=== PATIENT | female | born 1990 | race Caucasian/White ===

== ENCOUNTER 2017-01-29 02:54 | Emergency (ER) | payer OTHER ==
[~2017-01-29] VITALS: Ht 170.2 cm; Wt 59.1 kg
[2017-01-29 02:58] VITALS: BP 154/97; PULSE 101; RESP 20; O2SAT 99
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
[2017-01-29] MEDS ORDERED: LORazepam 2 mg Tablet PO ONE (03:10)
[2017-01-29] MEDS ORDERED: METH5TAB3 PO (08:42)
[2017-01-29 12:16] VITALS: BP 121/76; PULSE 86; RESP 18; O2SAT 98
--- NOTE | 2017-01-31 08:32 | NUR ---
GARY ED Note D&A: Pt was detained by [facility] yesterday afternoon (01/30/2017) for danger to self. [facility] was not able to find an open bed last night. Pt still requiring inpt hospitalization today. RIGGING UP MAN called [facility] who may have a bed available for today pending a possible discharge. Per community center coordinator, Psychiatrist will try to see pt today. GARY also Called the following units in case [facility] does not have a bed available for today: [facility]-May have a bed this afternoon. [facility]-No beds this morning, may have a bed this afternoon pending discharge. [facility]-No beds at this time. [facility]- No beds at this time. [facility]- Message left with Intake assembler musical instruments, GARY awaiting callback from Unit RN. P: Pt detained. Anticipated transfer to inpt psychiatric tx pending bed availability and acceptance. GARY Soler Addendum: 01/31/17 at 0900 by COURTNEY SANTOS ADDENDUM: Please disregard the above note. Mistakenly documented on pt's incorrect ED visit on the same calender day. GARY Soler
== END 2017-01-29 12:50 | disposition home or self-care (01) ==
LOC: EDBD → SED 02:54
DX: F32.9 Major depressive disorder, single episode, unspecified (principal); R45.851 Suicidal ideations; F17.200 Nicotine dependence, unspecified, uncomplicated; Z88.8 Allergy status to other drugs, medicaments and biological substances

== ENCOUNTER 2017-01-29 16:31 | Inpatient (IN) | payer MEDICAID, OTHER ==
[~2017-01-29] VITALS: Ht 170.2 cm; Wt 59.0 kg
[~2017-01-29 16:31] MED LIST: METH5TAB3 PO
[2017-01-29 16:45] VITALS: BP 144/88; PULSE 122; RESP 23; O2SAT 97
[2017-01-29] MEDS: Haloperidol 5 mg/mL Inj IM PRN (17:02)
[2017-01-29 17:10] VITALS: BP 147/83; PULSE 120
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
[2017-01-29 19:59] VITALS: BP 114/74; PULSE 118; RESP 20; O2SAT 98
[2017-01-30 01:47] VITALS: BP 110/80; PULSE 95; RESP 18; O2SAT 98
[2017-01-30 06:42] VITALS: BP 103/69; PULSE 94; RESP 20; O2SAT 97
[2017-01-30] MEDS ORDERED: LORazepam 2 mg Tablet PO ONE (08:40)
[2017-01-30] MEDS ORDERED: Methadone 10 mg/mL 30 mL Oral Concentration PO ONE (09:45)
[2017-01-30 10:08] VITALS: BP 103/69; PULSE 106; RESP 16; O2SAT 99
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
[2017-01-30 13:37] VITALS: BP 120/75; PULSE 87; RESP 20; O2SAT 98
[2017-01-30 18:13] VITALS: BP 123/83; PULSE 82; O2SAT 98
[2017-01-30] MEDS ORDERED: OLANZapine Zydis ODT 5 mg Tablet PO SCH (19:05)
[2017-01-31 06:59] VITALS: BP 108/77; PULSE 94; RESP 18; O2SAT 98
[2017-01-31 07:00] LABS: BASOPHILS % (AUTO) 0.4 % (0-3); EOSINOPHILS % (AUTO) 5.3 % (0-5); MONOCYTES % (AUTO) 7.9 % (4-12); Mean Corpuscular Hemoglobin 29.9 pg (27.0-35.0); Mean Corpuscular Volume 89.7 fL (81-100); NEUTROPHILS % (AUTO) 38.5 % (40-74); Platelet Count 169 bil/L (150-400)
[2017-01-31] MEDS: Haloperidol 5 mg/mL Inj IM PRN (07:43)
--- NOTE | 2017-01-31 09:00 | NUR ---
SCIENCE LIAISON ED Note D&A: Pt was detained by [facility] yesterday afternoon (01/30/2017) for danger to self. [facility] was not able to find an open bed last night. Pt still requiring inpt hospitalization today. SCIENCE LIAISON called [facility] who may have a bed available for today pending a possible discharge. Per coating and embossing unit operator, Psychiatrist will try to see pt today. SCIENCE LIAISON also Called the following units in case [facility] does not have a bed available for today: [facility]-May have a bed this afternoon. [facility]-No beds this morning, may have a bed this afternoon pending discharge. [facility]-No beds at this time. [facility]- No beds at this time. [facility]- Message left with Intake medical receptionist medical assistant, GARY awaiting callback from Unit RN. P: Pt detained. Anticipated transfer to inpt psychiatric tx pending bed availability and acceptance. GARY Soler
[2017-01-31] MEDS ORDERED: Benzocaine-Menthol Lozenge 2/Pkg PO PRN ×2 (12:45→12:50)
[2017-01-31] MEDS ORDERED: Alum-Mag Hydrox-Simeth 30 mL Suspension PO PRN (12:50)
[2017-01-31] MEDS ORDERED: Magnesium Hydroxide 10 mL Oral Concentration PO PRN (12:50)
[2017-01-31] MEDS: cloNIDine 0.1 mg Tablet PO SCH ×2 (13:11→19:33)
[2017-01-31] MEDS: LORazepam 1 mg Tablet PO PRN ×2 (13:12→19:33)
[2017-01-31] MEDS: hydrOXYzine Pamoate 25 mg Capsule PO PRN (13:12)
[2017-01-31] MEDS ORDERED: methadone PO (13:59)
[2017-01-31] MEDS: Methadone 10 mg/mL 30 mL Oral Concentration PO SCH (14:04)
--- NOTE | 2017-01-31 14:07 | NUR ---
New Admit Pt arrived on the floor @ 1205 from [facility] ED. She was accompanied by security and hospital staff. She was A/O x 4. Ambulatory with steady gait. She was detained on a 72 hour hold after making suicidal threats to both her boyfriend and the police. Refer to detainment paperwork and affidavits. She reports using multiple drugs; methamphetamines, cocaine, marijuana and heroine. Her boyfriend wrote in his affidavit that she has been in recovery for 2 years and relapsed this past week trying to manage manic type symptoms. She reports attending the Methadone Clinic at [facility] in [place]. JENNY signed and information faxed from [facility]. First dose of Methadone 100mg oral solution ordered by the attending physician and received this afternoon. She reports having multiple suicide attempts both in her youth and as an adult, she became agitated and restless when asked the methods attempted. She stated"I don't want to be here. I just want to go home." Upon admit she rated SI 1/10, Depression, 5/10, anxiety 10/10. Denies HI. Denies AVH. She received Vistaril 50mg po prn, Ativan 1mg po prn and Seroquel 50mg po prn upon admit for extreme anxiety & agitation. She finished the meal brought up from the ED. Oriented to her room and is currently resting.
--- NOTE | 2017-01-31 16:25 | NUR ---
Observations [id number] Pt arrived on unit @ 1205. She appeared disoriented, tired, and somber. Pt was able to complete paperwork with this advertising copywriter, stating multiple times "only because I have to." Pt mentioned that she has struggled with drug use for the past two weeks- "I don't need that crap in my life." She was also concerned about her baby blanket that she brought with her on the unit. After paperwork was completed, pt went to bed and slept the majority of the afternoon. She was observed every 15 minutes of shift as directed.
--- NOTE | 2017-01-31 22:09 | NUR ---
NURSING NOTE [id number] Mood: "I don't even care anymore... I should just . My boyfriend broke up with me. What's the point?" Affect: dependent, tearful Behavior: pt. resting in bed for several hours at start of shift. Her boyfriend Mil visited. While they were in the piano room the pt. began clinging to him, pleading w/him, and crying. Staff intervened and asked her to stop, which she did. Pt's boyfriend was also tearful. Pt. expressed that her bf was breaking up w/her and the bf then began explaining his reasoning (her addictions) which further upset the pt. This headline writer concluded the visit at that time and both parties were agreeable and said goodbye to each other w/out issue. Pt. took her HS medications at that time, as well as PRN Ativan 1 mg PRN and PRN Seroquel 50 mg. Pt. is med compliant. Thought processes: pt. endorses passive SI in that she expressed "there's no point anymore to my life if I can't be with Mil." Pt. denied any plan or intent at this time. Pt. agreed to tell staff if this changes. Pt. responded well to staff reassurance and maintained behavioral control for the rest of the evening.
--- NOTE | 2017-02-01 06:00 | NUR ---
Nursing Note Rn Security 11pm-7am Patient was in bed at start of shift. She was noted to be in bed asleep at 2245 and through the rest of the night. Pt monitored q 15 minutes for safety, location and accountability.
[2017-02-01] MEDS: cloNIDine 0.1 mg Tablet PO SCH ×2 (09:07→20:56)
[2017-02-01] MEDS: Methadone 10 mg/mL 30 mL Oral Concentration PO SCH (09:14)
--- NOTE | 2017-02-01 14:34 | NUR ---
nursing: Pt began the shift quiet and calm, med compliant. Came out for breakfast and ate about 75% She had her hearing today and has 14 more days. However after a conversation with her filler spreader stormed to her room saying 'I'm Homeless! I'm going to kill myself! She was just told that her gm got a restraining order and that was no longer an option. Pt has been sleeping since shortly after this outburst
--- NOTE | 2017-02-01 15:15 | HP ---
[address] [address] HISTORY AND PHYSICAL PATIENT: DANAE DE LEÓN : 1990 MR#: [id number] ADMIT: 01/31/2017 JOB ID: [id number] IDENTIFICATION: The patient is a 26-year-old white female with a history of polysubstance abuse currently attending a methadone clinic. She is a very poor historian and was brought to the ED for evaluation of suicidal ideation. REASON FOR ADMISSION: Suicidal ideation. Client was running into traffic in an attempt to kill herself. She had wished that she had overdosed on meds and was highly agitated when brought to the emergency department. HISTORY OF PRESENT ILLNESS: Client presents today for evaluation and treatment of suicidal ideation. I met with the client for a brief one-to-one and reviewed course and records kept by [facility]. Client's main issue is polysubstance abuse. Co-occurring issues are interpersonal relationship conflicts. The condition has been developing over an unclear amount of time. The client is a poor historian and refuses to answer any of my questions. Per the ED, she was complaining of suicidal ideation because she broke up with her boyfriend. Two days prior to admission, she did heroin, cocaine and methadone. Her urine tox was also positive for THC. At the time of my evaluation, she was extremely emotionally labile with poor coping skills and a marked impairment in judgment and insight. She refused to respond to questions about psychiatric or physical review of systems. She refused to talk about past medical history or psychosocial history. PAST MEDICATIONS: Methadone clinic 115 mg per day. Client denies being on any psych meds. ALLERGIES: SUMATRIPTAN. ILLNESSES: None. FAMILY MEDICAL HISTORY: Client refuses. PAST PSYCHIATRIC HISTORY: Client states she has been diagnosis with bipolar mood disorder, and currently is at a methadone clinic. PSYCHOSOCIAL: Client refused to answer any of my questions. PHYSICAL EXAMINATION: Vital signs: 108/77, pulse 94, respirations 18, afebrile. Physical examination reviewed from ED and essentially normal. MENTAL STATUS: Client disheveled. Poor eye contact. Behavior lethargic, withdrawn. Attitude aloof and detached. Speech monotone or mute. Mood will not respond. Affect flat, blunted with high intensity. Thought process: Client unable or unwilling to relate a coherent history. She did not appear to be responding to internal stimuli. She appeared fatigued. Thought content: Client mute. Per ED she had suicidal ideation to overdose and to get hit by traffic. She did run into traffic but refused to talk with me. She refused to answer orientation or memory questions. Insight and judgment appeared very poor. Impulse control highly contained yet rigid. Having a difficult time handling impulses of fear or anger. Reality testing is unable to assess. Competency to handle current stressors is currently being overwhelmed. IMPRESSION: The patient is a 26-year-old white female with a rather severe polysubstance abuse issue as including heroin, cocaine, methamphetamine, marijuana and alcohol. She also has a rather severe personality disorder per the chart and appears to be exhibiting some of that behavior here with refusing to participate in the unit process or the court process. I went to court today and testified. Her 72 hour involuntary treatment hold hearing was postponed until Monday. For unclear reasons, client is still being prescribed methadone at the methadone clinic besides what sounds like ongoing substance abuse. We will need to further get information from the clinic and from the patient when she agrees to start talking. DIAGNOSIS: AXIS I 1. Depression unspecified with suicidal ideation. 2. Rule out substance induced mood disorder. 3. Polysubstance abuse heroin, cocaine, methamphetamine and THC. AXIS II Unknown, reported borderline personality disorder. AXIS III None. AXIS IV Unknown. AXIS V Current global assessment of functioning equal to 30. PLAN: Recommend client be admitted to our unit to be provided with a high degree of safety through the structure and active adult engagement she receives from our mental health techs, mental health professionals, psychiatric nurses and the psychiatric physicians. We will have her participate in one-to-one unit and group activities working on improving coping skills, as well as help coming up with a safety plan should suicidal ideation recur as an outpatient. At this time I am continuing the methadone at 100 mg daily and clonidine 0.1 b.i.d. for potential symptoms of withdrawal. No other psychiatric medications recommended until she can detox for a couple days and start to develop a more therapeutic alliance with myself or another physician. Court will be scheduled for Monday.
--- NOTE | 2017-02-01 18:32 | NUR ---
Observations 0700 - 1900 Pt affect and mood flat, isolative, guarded and withdrawn. Pt was in her room and in bed most of the shift. Pt was pleasant, polite and cooperative when approached but giving short responses. Pt maintained behavior throughout the shift. Pt attended breakfast in D.R. and ate 75%. Pt came out of her room for court but returned to her bed as soon as it was over. Pt was offered lunch and dinner but she refused to come out of her room. Pt was observed every 15 minutes through the shift as ordered.
--- NOTE | 2017-02-01 21:49 | NUR ---
NURSING NOTE [id number] Mood: "whatever, I'm fucking done" Affect: irritable, depressed, guarded Behavior: isolating to room for majority of the shift. Pt. came out late to eat her dinner and took a shower. Stated: "this is the last shower I'll ever take since I'm fucking homeless now. Thanks, grandma!" She was med compliant and had 5 mg of Ambien PRN @ HS for insomnia. Thought processes: pt. expressing negative thinking and hopelessness this evening. She learned today she can no longer live w/her grandmother and has been irritable in conversation w/this advertising copy writer. Expresses passive SI w/no plan or intent.
--- NOTE | 2017-02-02 04:08 | NUR ---
nursing, nights, 11-7 s/o- has appeared to sleep after 2129 during q 15 minute assessments. a- no apparent distress. p- monitor behavior/emotional state, quality, times and amount of sleep, use and effect of medication. gurwinder
[2017-02-02] MEDS: hydrOXYzine Pamoate 25 mg Capsule PO PRN ×2 (06:43→13:22)
[2017-02-02] MEDS: cloNIDine 0.1 mg Tablet PO SCH ×2 (08:30→21:22)
[2017-02-02] MEDS: Methadone 10 mg/mL 30 mL Oral Concentration PO SCH (08:31)
[2017-02-02 10:35] VITALS: BP 109/72; PULSE 71; RESP 18
--- NOTE | 2017-02-02 13:57 | PCM.PNPSY ---
Subjective Date of Service Feb 02, 2017 Subjective I spent 30 minutes both reviewing treatment plan with our clinical team, interviewing the patient and providing supportive/educational psychotherapy. I spent more than 50% of the time counseling the patient. I reviewed the treatment plan with the patient and discussed options available including the potential risks, benefits and side effects. Bettye reports no difficulty with her thought organization or mood stability. She does not want to take medications other than her methadone and is demanding discharge. She recently learned that her grandmother placed a restraining order on her and she is now homeless. She did not want to problem solve about engaging treatment or participating in the program over the weekend as we establish outpatient care and a housing plan. She simply is demanding discharge. Staff reports that she has been isolating and participating poorly in one-to-one unit and group activities. She slept 9 hours and denies manic or psychotic symptoms review. She does report extreme dysphoria. She is currently denying suicidal ideation. She denies medication side effects. Current Medications Current Medications Hydroxyzine Pamoate 50 mg Q4H PRN PO Last administered on 02/02/17t 13:22; Admin Dose 50 MG; Start 02/01/17 at 14:40 Mental Status Exam Vital Signs Vital Signs Date Time Temp Pulse Resp B/P Pulse Ox O2 Delivery O2 Flow Rate FiO2 02/02/17 10:35 36.6 71 18 109/72 Appearance: Disheveled Attitude: Uncooperative Behavior: Tearful Affect: Flat, Labile Mood: Dysthymic, Depressed Thought Process/Associations: Goal Directed Speech Production: Loud Speech Rate: Normal Speech Articulation: Normal Thought Content: Negativistic Danger to Self/Suicidal Ideati: Passive, Plan Danger to Others: None Consciousness: Alert Orientation: Person, Place, Date, Situation Memory: Grossly Intact Estimate Intellectual Function: Below Average Basis for IQ estimate: Awareness current events, Word use/vocabulary, Educational history, Employment history Attention/Concentration & Cogn: Impaired Cognitive Testing Method: Abstract Reasoning during interview, Proverb interpretation, Serial computations Insight: Limited Judgement: Limited Result Diagram: 01/31/17 0650 01/31/17 0650 Mental Health Plan The patient is a 26-year-old white female with a rather severe polysubstance abuse issue as including heroin, cocaine, methamphetamine, marijuana and alcohol. She also has a rather severe personality disorder per the chart and appears to be exhibiting some of that behavior here with refusing to participate in the unit process or the court process. I went to court on Monday and testified. Her 72 hour involuntary treatment hold hearing was postponed until Monday. She is still being prescribed methadone as she struggles with ongoing substance abuse. At this time she is refusing psychiatric medications or further offers of treatment. She denies suicidal ideation today but I am concerned that she is still at risk. [place] DIAGNOSIS: AXIS I 1. Depression unspecified with suicidal ideation. 2. Rule out substance induced mood disorder. 3. Polysubstance abuse heroin, cocaine, methamphetamine and THC. AXIS II Unknown, reported borderline personality disorder. AXIS III None. AXIS IV Unknown. AXIS V Current global assessment of functioning equal to 35 Medications Medications to address General Physical Health Treatments Patient is being provided with a high degree of safety through our unit structure and active adult engagement provided by our mental health professionals, mental health technicians, psychiatric nurses and myself. We are focusing on developing improved coping skills and identifying stressors that may have led to current episode. We will attempt to: * Integrate into therapeutic groups, milieu and individual therapy. * Maintain in a closely monitored and structured unit * Provide low-stimulation environment * Obtain collateral data to assist in treatment planning * Assess degree of lability of affect and impulse control * Complete safety plan * Decrease frequency of relapse and need for re-hospitalization * Denies thoughts of harm to self and/or others * Establish a consistent sleep pattern * Medication effective in stabilization of mood and/or thought process * Reduce the risk of imminent harm to self and/or others by providing a safe environment * Tolerates medication without side effects Patient will be on the following psychiatric medications: Methadone 100 mg daily Labs: Education: Educate patient about recreational drug use as an etiology Educate about metabolic etiologies related to obesity Patient's legal status Patient is on a 72 hour involuntary treatment hold. Patient will be given the opportunity to talk to her class b truck driver and the slot tag inserter Monday Anticipated number of hospital days to achieve above goals: 7 Disposition: [facility] care Baldemar Comer MD Feb 02, 2017 13:57
--- NOTE | 2017-02-02 14:43 | NUR ---
NURSE NOTE DAY Mood: "I'm angry and frustrated." Endorses depression and anxiety (did not rate). Affect: Irritable. Thought Process/Content: "I don't know why my grandmother has an f*&$%ing restraint order for me." Linear, linked. Denies SI, HI. Denies AH, VH. Behavior: Pt up for meals and isolated in room much of shift.
--- NOTE | 2017-02-02 16:04 | NUR ---
Observations 0700 to 1900. Pt did not attend community meeting. Pt attended recreational activities. Pt ate a snack. Pt is mildly social with peers but spends some of free time reading and resting in room. Pt appears ambivalent towards staff. Pt maintained behavioral control and showed no signs of abnormal behavior. Respirations were observed while asleep. Breakfast: 100%. Lunch: 100%. Staff completed 15 min close observations as ordered. Addendum: 02/02/17 at 1821 by [facility] Pt became agitated when fire alarm went off for five minutes around 1700. Pt began slamming doors, yelling and cursing. Pt was unable to deescalate with staff intervention. Pt remained in room until dinner several minutes later in which she was able to maintain behavioral control.
[2017-02-02] MEDS: LORazepam 1 mg Tablet PO PRN (17:05)
--- NOTE | 2017-02-02 18:05 | NUR ---
Optical Engineering Technician/Counselor: S: "I want my blanket but people think I will hang myself so they won't let me get it!" O: Patient slept 8.5 hours last night per staff. Patient denies S/I and H/I. She did not rate auditory and visual hallucinations, depression or anxiety. A: Patient is uncooperative, unkept, labile, tearful, flat affect, dysthymic, depressed, limited insight, limited judgment. P: Follow the care plan, coordinate with out-patient providers, monitor behavior.
--- NOTE | 2017-02-02 23:07 | NUR ---
NURSE NOTE EVENING SHIFT [id number]: Pt was in the milieu at the start of shift, but then stayed in her room for majority of the rest of the shift. The fire alarm activated around 1700, at which time the Pt came out of her room angrily yelling and swearing about the noise. Staff offered her ear plugs, but she did not want any. Pt went back to her room until dinnertime, then went back to her room to rest in bed. PT was compliant and pleasant when taking HS meds. Pt monitored q15 min. for safety, location and accountability.
--- NOTE | 2017-02-03 04:08 | NUR ---
nursing, nights, 11-7 s/o- has appeared to sleep after 2100 during q 15 minute assessments. a- no apparent distress. p- monitor behavior/emotional state, quality, times and amount of sleep, use and effect of medication. gurwinder
[2017-02-03] MEDS: cloNIDine 0.1 mg Tablet PO SCH (07:37)
[2017-02-03] MEDS: Methadone 10 mg/mL 30 mL Oral Concentration PO SCH (07:46)
--- NOTE | 2017-02-03 12:59 | PCM.PNPSY ---
Subjective Date of Service Feb 03, 2017 Subjective I spent 30 minutes both reviewing treatment plan with our clinical team, interviewing the patient and providing supportive/educational psychotherapy. I spent more than 50% of the time counseling the patient. I reviewed the treatment plan with the patient and discussed options available including the potential risks, benefits and side effects. Bettye reports no difficulty with her thought organization or mood stability but is concerned about a cyst on her vulva. She does not want to take medications other than her methadone and is demanding discharge (she is on a 70 2R involuntary treatment hold that has been postponed until next Monday). She recently learned that her grandmother placed a restraining order on her and she is now homeless. Today she was willing to problem solve about engaging treatment and participating in the program over the weekend as we establish outpatient care and a housing plan. She is hoping to be discharged early next week and I believe this would be appropriate if she can develop a reasonable safety plan. Staff reports that she has been isolating and participating poorly in one-to-one unit and group activities. She slept 9 hours and denies manic or psychotic symptoms review. She does report extreme dysphoria. She is currently denying suicidal ideation. She denies medication side effects. Current Medications Current Medications Hydroxyzine Pamoate 50 mg Q4H PRN PO Last administered on 02/02/17 13:22; Admin Dose 50 MG; Start 02/01/17 at 14:40 Ibuprofen 600 mg Q6H PRN PO Last administered on 02/03/17 07:37; Admin Dose 600 MG; Start 02/01/17 at 14:40 Lorazepam 1 mg Q4H PRN PO Last administered on 02/02/17 17:05; Admin Dose 1 MG ; Start 02/01/17 at 14:40 Mental Status Exam Appearance: Disheveled Attitude: Uncooperative Behavior: Tearful Affect: Flat, Labile Mood: Dysthymic, Depressed Thought Process/Associations: Goal Directed Speech Production: Loud Speech Rate: Normal Speech Articulation: Normal Thought Content: Negativistic Danger to Self/Suicidal Ideati: Passive, Plan Danger to Others: None Consciousness: Alert Orientation: Person, Place, Date, Situation Memory: Grossly Intact Estimate Intellectual Function: Below Average Basis for IQ estimate: Awareness current events, Word use/vocabulary, Educational history, Employment history Attention/Concentration & Cogn: Impaired Cognitive Testing Method: Abstract Reasoning during interview, Proverb interpretation, Serial computations Insight: Limited Judgement: Limited Result Diagram: 01/31/17 0650 01/31/17 0650 Mental Health Plan The patient is a 26-year-old white female with a rather severe polysubstance abuse issue as including heroin, cocaine, methamphetamine, marijuana and alcohol. She also has a rather severe personality disorder per the chart and appears to be exhibiting some of that behavior here with refusing to participate in the unit process or the court process. Her 72 hour involuntary treatment hold hearing was postponed until next Monday. She is still being prescribed methadone as she struggles with ongoing substance abuse. At this time she is refusing psychiatric medications or further offers of treatment. She denies suicidal ideation today but I am concerned that she is still at risk. If she is able to develop an appropriate safety plan which includes a therapist A safe household and is able to reengage the methadone clinic I believe she would be appropriate for discharge Prior to Monday. Bettye reports no difficulty with her thought organization or mood stability but is concerned about a cyst on her vulva. She does not want to take medications other than her methadone and she is on a 72 hour involuntary treatment hold that has been postponed until next Monday. She recently learned that her grandmother placed a restraining order on her and she is now homeless. Today she was willing to problem solve about engaging treatment and participating in the program over the weekend as we establish outpatient care and a housing plan. She is hoping to be discharged early next week and I believe this would be appropriate if she can develop a reasonable safety plan. [place] DIAGNOSIS: AXIS I 1. Depression unspecified with suicidal ideation. 2. Rule out substance induced mood disorder. 3. Polysubstance abuse heroin, cocaine, methamphetamine and THC. AXIS II Unknown, reported borderline personality disorder. AXIS III None. AXIS IV Unknown. AXIS V Current global assessment of functioning equal to 35 Treatments Patient is being provided with a high degree of safety through our unit structure and active adult engagement provided by our mental health professionals, mental health technicians, psychiatric nurses and myself. We are focusing on developing improved coping skills and identifying stressors that may have led to current episode. We will attempt to: * Integrate into therapeutic groups, milieu and individual therapy. * Maintain in a closely monitored and structured unit * Provide low-stimulation environment * Obtain collateral data to assist in treatment planning * Assess degree of lability of affect and impulse control * Complete safety plan * Decrease frequency of relapse and need for re-hospitalization * Denies thoughts of harm to self and/or others * Establish a consistent sleep pattern * Medication effective in stabilization of mood and/or thought process * Reduce the risk of imminent harm to self and/or others by providing a safe environment * Tolerates medication without side effects Patient will be on the following psychiatric medications: Methadone 100 mg daily Patient's legal status Patient is on a 72 hour involuntary treatment hold. Patient will be given the opportunity to talk to her pants maker and the pipe and tank fabricator Monday Anticipated number of hospital days to achieve above goals: 2-4 days depending on patient's progress Disposition: [facility] care Baldemar Comer MD Feb 03, 2017 12:59
[2017-02-03] MEDS: hydrOXYzine Pamoate 25 mg Capsule PO PRN (15:37)
--- NOTE | 2017-02-03 16:29 | NUR ---
Observations 0700 - 1900 Pt affect and mood continues to be flat, anxious, isolative, guarded and withdrawn. Pt was in her room and in bed most of the shift. Pt was pleasant, polite and cooperative when approached but giving short responses. Pt maintained behavior throughout the shift. Pt attended breakfast and lunch in D.R. and ate 75%. Pt ate snack. Pt came out of her room for court but returned to her bed as soon as it was over. Pt has been out of her room most of the afternoon. Pt was observed every 15 minutes through the shift as ordered.
[2017-02-03] MEDS: LORazepam 1 mg Tablet PO PRN (17:24)
--- NOTE | 2017-02-03 17:34 | NUR ---
Nurses PRN Patient received Ativan 1mg and Seroquel 50mg at this time prior to I&D of labial lesion.
--- NOTE | 2017-02-03 18:55 | CONS ---
[address] [address] CONSULTATION REPORT PATIENT: DANAE DE LEÓN : 1990 MR#: [id number] ADMIT: 01/31/2017 JOB ID: [id number] DATE OF SERVICE: 02/03/2017 REASON FOR CONSULTATION: Right labial cyst. HISTORY OF PRESENT ILLNESS: This is a 26-year-old female who was admitted to our psychiatric unit for suicidal ideation on whom [facility] consultation is requested due to a right labial cyst. The patient is a very poor historian and does have a history of polysubstance abuse currently attending a methadone clinic as well as some sort of mood disorder and personality disorder, likely depression or other substance- induced mood disorder, and a history of polysubstance abuse including heroin, cocaine, and methadone, as well as marijuana and alcohol use. The patient was admitted on the for the above and while being hospitalized for her psychiatric illness was noted to have a painful enlarged right labial cyst. For this reason, I was consulted. Please see the emergency department and psychiatric history and physical for her past history as she is a difficult historian at the bed side. It does sound like she has had a history of recurrent Bartholin's cysts which have been drained previously. She is requesting that she be "knocked out" in order to have drainage of her cyst. PHYSICAL EXAMINATION: Objectively the patient is agitated in the room and she is very angry with the idea of having a bedside incision and drainage of her labial cyst. After discussing with her she feels strongly that she would like to proceed with this, however she is angry that this is not going to be done in the operating room where she is put to sleep. On physical examination she does have what appears to be a 3 cm in diameter right Bartholin's cyst with evidence of previous drainage procedure that has healed over. After discussing with her, she elects to proceed with drainage at the bedside. PROCEDURAL DETAILS: The patient was placed in lithotomy position in her bed. The cyst was palpable and the patient is very angry with the idea of drainage at the bedside but elects to proceed regardless. After injection with 1 cc of local anesthetic a small puncture was made on the medial side of the right labia at the level of the Bartholin's gland. There was a moderate amount of drainage of blood-tinged purulent discharge with good reduction in the cyst size following this. The wound was then irrigated with saline. The patient was not able to tolerate any packing and at this point the procedure was completed. ASSESSMENT: This is a 26-year-old female admitted to the psychiatric unit for suicidal ideation with a history of polysubstance abuse and severe personality disorder who was complaining of a painful right labial cyst which was drained at bedside. PLAN: Her cyst was drained with good reduction in the cyst fluid. At this point in time I would recommend proceeding with doxycycline therapy for prophylaxis against infection. If she is having ongoing issues with recurrent Bartholin gland cyst or abscess, cyst removal could be discussed further as an outpatient when her psychiatric condition has stabilized versus marsupialization. It is likely that her cyst will recur with bedside drainage only, however this was the most appropriate during her current inpatient stay. [facility] when she is discharged for further followup. VIJAY
--- NOTE | 2017-02-03 19:24 | NUR ---
Nursing Notes [id number] S: "I have a vaginal cyst-it hurts so bad". "Methadone doesn't help-it needs to be drained". "I can't stand for it to be touched unless they knock me out". O: Patient crying, laid on floor by nursing station during shift change this morning. Reporting terrible pain. Patient became calm and more rational about 1 hr after receiving methadone. Labial cyst visualized, Rt side appears swollen/reddened about 2 long to 1 inch wide. Rates anxiety as 12/12, depression 11/12. Denies A/V hallucinations or suicidal/homicidal ideation. A: Patient labile, tearful, anxious, flat. P: Monitor for safety and response to treatment. Follow plan of care. Addendum: 02/03/17 at 1925 by LISBETH DUONG RN Compensation Director came up to unit to assess vaginal cyst. Patient angry that she would not be knocked out for I&D. Patient swearing angry, yelling loudly, but cooperated. Lidocaine applied topically and injected. Incision and drainage completed. Antibiotics ordered.
--- NOTE | 2017-02-03 20:12 | NUR ---
National Van Truck Driver/Counselor: S/O: Patient slept 9 hours last night per staff. Patient denies S/I and H/I. She did not rate auditory and visual hallucinations, depression or anxiety. A: Patient is uncooperative, disheveled, labile, tearful, flat affect, dysthymic, depressed, limited insight, limited judgment. P: Follow the care plan, coordinate with out-patient providers, monitor behavior.
[2017-02-04 02:15] VITALS: BP 102/59; PULSE 71; RESP 18
--- NOTE | 2017-02-04 06:47 | NUR ---
Nursing Note Forensics Team Director 7pm to 7am Pt in day room at start of shift talking with peers. Affect depressed mood congruent. Pt reported pain 6/10 post labial cyst draining this afternoon. Given Tylenol with good relief. Pt took Ambien 5mg with HS meds and went to bed at 0000 and slept the duration of the shift without interruption. Monitor with q 15 minute face checks for safety, location and accountability
[2017-02-04] MEDS: Methadone 10 mg/mL 30 mL Oral Concentration PO SCH (09:06)
[2017-02-04] MEDS: LORazepam 1 mg Tablet PO PRN ×2 (09:34→16:00)
[2017-02-04] MEDS: cloNIDine 0.1 mg Tablet PO SCH ×2 (11:42→20:17)
--- NOTE | 2017-02-04 15:44 | PCM.PNPSY ---
Subjective Date of Service Feb 04, 2017 Subjective The patient is angry about not having gel pens and having to use art pencils. She is using a fair amount of profanity in the day room. She reports a history of stomach upset and nausea" having been referred to a varnishing unit operator who found nonerosive gastritis and prescribed her citalopram which she found very effective in several days. The patient is also angry about no longer receiving clonidine and although with discontinued it is unclear as to why. We discussed using Lexapro for her anxiety and the patient was agreeable. The patient also requested a salad with lunch and a nonfiction diet. Sleep: 6 hours Appetite: "Hungry" Suicidal and homicidal ideation: Denies except angry about not having pens as noted above. Auditory hallucinations/Visual hallucinations: Denies Other Psychotic Symptoms: Anxiety: 04/14 Depression: 01/12 Current Medications Current Medications Clonidine 0.1 mg BID PO Last administered on 02/04/17 11:42; Admin Dose 0.1 MG; Start 02/04/17 at 11:35 Doxycycline Hyclate 100 mg BID PO Last administered on 02/04/17 08:48; Admin Dose 100 MG; Start 02/03/17 at 20:30; Stop 02/10/17 at 20:31 Escitalopram Oxalate 10 mg DAILY PO Last administered on 02/04/17 11:42; Admin Dose 10 MG; Start 02/04/17 at 11:35 Mental Status Exam Appearance: Disheveled Attitude: Uncooperative, Hostile/Threatening Behavior: Overtly anxious Affect: Labile Mood: Depressed, Anxious Thought Process/Associations: Goal Directed, Tangential Speech Production: Loud Speech Rate: Normal Speech Articulation: Normal Thought Content: Negativistic, Perseveration Danger to Self/Suicidal Ideati: None Danger to Others: None Hallucinations: Auditory (Denies), Visual (Denies) Consciousness: Alert Orientation: Person, Place, Date, Situation Memory: Grossly Intact Estimate Intellectual Function: Above Average (to), Below Average Basis for IQ estimate: Word use/vocabulary, Educational history, Employment history Attention/Concentration & Cogn: Impaired Insight: Limited Judgement: Limited Result Diagram: 01/31/17 0650 01/31/17 0650 Mental Health Plan The patient is a 26-year-old white female with a rather severe polysubstance use including heroin, cocaine, methamphetamine, marijuana and alcohol. The patient has a history of significant personality disorder and has been refusing to participate on the unit as well as with the court process. She recently learned that her grandmother placed a restraining order on her and she is now homeless. In order to allow the patient to further stabilize, her 72 hour involuntary treatment hold hearing was postponed until this Monday. She is still being prescribed methadone as she struggles with ongoing opiate use. The patient was treated for a labial cyst. Although previously refusing psychiatric treatment, the patient is now agreeable to starting an antidepressant for anxiety and depression. The patient will need to work on a proper safety plan prior to discharge. Long hospital stays are contraindicated in those with significant cluster B personality disorder. [place] AXIS I 1. Depression unspecified 2. Rule out substance induced mood disorder. 3. Polysubstance use disorder with heroin, cocaine, methamphetamine and THC. AXIS II Borderline personality disorder, by report. AXIS III labial cyst. AXIS IV Unknown. AXIS V Current global assessment of functioning equal to 35 Medications Clonidine 0.1 mg twice daily Escitalopram 10 mg daily Lorazepam 1 mg every 4 hours as needed Hydroxyzine 50 mg every 4 hours when necessary anxiety or agitation Methadone 100 mg daily Doxycycline 100 mg twice daily through 02/10/2017 Nicoderm 28mg TD patch daily Zolpidem 5-10 mg nightly when necessary insomnia Treatments 1. The patient is admitted to the inpatient unit and will be provided a safe and secure environment. 2. The patient is denying current active suicidality and is not in need of a one-to-one at this time. 3. The patient is encouraged to participate with group and milieu activities. 4. The patient will be seen by the treatment team on a daily basis to assess symptoms, side effects and response to treatment. 5. The patient will be continued on her current medication 6. Restart clonidine 0.1 mg twice daily 7. Escitalopram 10 mg daily start today 8. The patient will need to work on a safety plan prior to discharge 9. Anticipated length of stay is 3-5 days. Andrew Laurent MD Feb 04, 2017 15:44 Patient's legal status Patient is on a 72 hour involuntary treatment hold. Patient will be given the opportunity to talk to her merry go round attendant and the cattle care worker Monday Anticipated number of hospital days to achieve above goals: 2-4 days depending on patient's progress Disposition: [facility] care Andrew Laurent MD Feb 04, 2017 15:44
[2017-02-04] MEDS: hydrOXYzine Pamoate 25 mg Capsule PO PRN ×2 (16:00→20:17)
--- NOTE | 2017-02-04 16:15 | NUR ---
Nurses Note Seclusion Patient was secluded at 1615 for loud belligerent screaming demands at staff. She was unable to control herself,follow staff directions and upset her peers on the unit without regard. Patient had PRN Seroquel 50mg and Ativan 1mg prior to the seclusion and had 1:1 with RN to assist with regaining control. Patient screamed for approximately for 45 min. and calmed on her own and stated she would maintain control. Seclusion discontinued at 1715. Will maintain q 15min. checks and encourage improved coping and problem solving. Addendum: 02/04/17 at 1919 by SARA DENNY RN Amended: Links added.
--- NOTE | 2017-02-04 16:48 | NUR ---
Observations 0900 to 2130 Pt ate a snack. Pt spends free time coloring in dining room and also resting in room. Pt is easily agitated when demands are not met immediately. Pt wanted snacks not during snack hours, wanted long pens not appropriate to unit and became upset when other pts chose a movie for the common room. Pt began cussing at staff when staff explained per unit policy those demands could not be met. Pt is social with peers but continues to use inappropriate language and ruminate to peers about not having demands met. Pt became increasing agitated and aggressive and needed seclusion. Please read RNs note for further detail. Staff completed 15 min close observations as ordered.
--- NOTE | 2017-02-04 18:42 | NUR ---
Nursing Notes [id number] S: "That is so f stupid, does anyone get anything right around here". O: Patient continually complaining under her breath and cursing. Patient upset that her Catapres had been canceled, that she was not allowed to have gel pens on the unit (do to volatility between two patients on unit) and that she did not get a salad at lunch-even though I asked, like 15 people. Patient reports anxiety 01/12, depression /. Denies SI/HI or hallucinations. A: Irritable, demanding at times, glaring P: Monitor for safety and response to treatment. Follow plan of care. Addendum: 02/04/17 at 1842 by LISBETH DUONG RN PR[facility]ryson 09:40 Seroquel 50 mg po for anxiety 10/10. Effective, anxiety reduced to 5/10. Ativan 1 mg po for anxiety 10/10. Effective, anxiety reduced to 5/10. 16:15 Seroquel 50mg po for agitation. Vistaril 50 mg po for agitation. Ativan 1 mg po for agitation.
--- NOTE | 2017-02-05 05:09 | NUR ---
Nursing Note Vertica Architect 7pm to 7a Pt visible on unit at start of shift, interacting with select female peers, able to egulate emotions and bx. Cooperative with staff. Pt took HS meds without hesitation and Ambien for sleep. Pt slept through the night uninterrupted. Monitored pt with q 15 minute face checks for safety location and accountability
[2017-02-05] MEDS: LORazepam 1 mg Tablet PO PRN ×3 (06:58→18:19)
[2017-02-05] MEDS: cloNIDine 0.1 mg Tablet PO SCH ×2 (09:08→20:45)
[2017-02-05 09:10] VITALS: BP 109/66; PULSE 71; RESP 15
[2017-02-05] MEDS: Methadone 10 mg/mL 30 mL Oral Concentration PO SCH (10:01)
--- NOTE | 2017-02-05 14:37 | PCM.PNPSY ---
Subjective Date of Service Feb 05, 2017 Subjective The patient reports "my boyfriend dumped me because I lied about using meth and coke." She reports that he did not want someone actively using drugs around him. She reports that she had previously been with her fianc for 11 years, had been engaged in 2010, but broke up 02/03/2016 due to her drug use. She reports that her heroin addiction of 4 years was the likely source of the problem. She is currently concerned about not having a place to stay. She reports a fear that her phone is in her car which has been taken to her grandmother's with whom there is a no contact order. The patient reports that she feels calm her overall and the clonidine was helpful. She is hoping for discharge as early as possible. The patient requests Commit lozenges. She reports that she will have follow up with [facility]. Her methadone clinic is in [place]. Sleep: 8 hours Appetite: "Good" Suicidal and homicidal ideation: Denies Auditory hallucinations: Denies Visual hallucinations: Denies Other Psychotic Symptoms: N/A Anxiety: Depression: Current Medications Current Medications Clonidine 0.1 mg BID PO Last administered on 02/05/17 09:08; Admin Dose 0.1 MG; Start 02/04/17 at 11:35 Doxycycline Hyclate 100 mg BID PO Last administered on 02/05/17 09:08; Admin Dose 100 MG; Start 02/03/17 at 20:30; Stop 02/10/17 at 20:31 Escitalopram Oxalate 10 mg DAILY PO Last administered on 02/05/17 09:08; Admin Dose 10 MG; Start 02/04/17 at 11:35 Mental Status Exam Vital Signs Vital Signs Date Time Temp Pulse Resp B/P Pulse Ox O2 Delivery O2 Flow Rate FiO2 02/05/17 09:10 35.6 71 15 109/66 Appearance: Neat/well groomed Attitude: Cooperative Behavior: No unusual behavior Affect: Other (sad appearing) Mood: Depressed, Anxious Thought Process/Associations: Goal Directed Speech Production: Normal Speech Rate: Normal Speech Articulation: Normal Thought Content: Negativistic, Perseveration Danger to Self/Suicidal Ideati: None Danger to Others: None Hallucinations: Auditory (Denies), Visual (Denies) Consciousness: Alert Orientation: Person, Place, Date, Situation Memory: Grossly Intact Estimate Intellectual Function: Average Basis for IQ estimate: Word use/vocabulary, Educational history, Employment history Attention/Concentration & Cogn: Impaired Insight: Limited Judgement: Limited Result Diagram: 01/31/1750 01/31/17649 Mental Health Plan The patient is a 26-year-old white female with significant polysubstance use disorder including heroin, cocaine, methamphetamine, marijuana and alcohol. The patient has a history of significant personality disorder and had been refusing to participate on the unit as well as with the court process. She recently learned that her grandmother placed a restraining order on her and she is now homeless. In order to allow the patient to further stabilize, her 72 hour involuntary treatment hold hearing was postponed until this Monday. She is still being prescribed methadone as she struggles with ongoing opiate use. The patient was treated for a labial cyst. The patient appears calmer today and is using less obscenities and is able to maintain a normal conversation. She was encouraged to work on appropriate discharge planning so as to allow for discharge on Monday. She was encouraged to maintain appropriate behavior on the unit. She denies side effects to medications. Long hospital stays are contraindicated in those with significant cluster B personality disorder. [place] AXIS I 1. Depression unspecified 2. Rule out substance induced mood disorder. 3. Polysubstance use disorder with heroin, cocaine, methamphetamine and THC. AXIS II Borderline personality disorder, by report. AXIS III labial cyst. AXIS IV Unknown. AXIS V Current global assessment of functioning equal to 35 Medications Clonidine 0.1 mg twice daily Escitalopram 10 mg daily Lorazepam 1 mg every 4 hours as needed Hydroxyzine 50 mg every 4 hours when necessary anxiety or agitation Methadone 100 mg daily Doxycycline 100 mg twice daily through 02/10/2017 Nicoderm 21mg TD patch daily with commit lozenges Zolpidem 5-10 mg nightly when necessary insomnia Treatments 1. The patient is admitted to the inpatient unit and will be provided a safe and secure environment. 2. The patient is denying current active suicidality and is not in need of a one-to-one at this time. 3. The patient is encouraged to participate with group and milieu activities. 4. The patient will be seen by the treatment team on a daily basis to assess symptoms, side effects and response to treatment. 5. The patient will be continued on her current medication 6. Continue clonidine 0.1 mg twice daily 7. Continue Escitalopram 10 mg daily 8. The patient will need to work on a safety plan prior to discharge 9. Anticipated length of stay is 2-3 days. Andrew Laurent MD Feb 05, 2017 14:37
--- NOTE | 2017-02-05 18:15 | NUR ---
Nursing Notes [id number] S: "I would like something to calm me down, I am feeling pretty tight". O: Patient colored and worked on art much of the day. Reports the Ativan/Seroquel combination helps her feel calmer. Patient had a verbal confrontation with a psychotic patient at shift change this morning. Later, both patients apologized with each other. No other outbursts this shift. Rates anxiety 8/10, depression 6/10. Denies current SI/HI or hallucinations. Patient more cooperative and respectful to staff. A: Patient sad, anxious and perseverating. P: Monitor for safety and response to treatment. Follow plan of care. Addendum: 02/05/17 at 1817 by LISBETH DUONG RN [place] 12:28 Ativan 1 mg po for anxiety 8/10. Seroquel 50 mg po for anxiety 8/10. Effective, patient anxiety reduced to 5/10.
[2017-02-05] MEDS: hydrOXYzine Pamoate 25 mg Capsule PO PRN (18:19)
--- NOTE | 2017-02-05 21:01 | NUR ---
Observations 00 - 0 Pt affect and mood was anxious, agitated at times, social with select peers and labile. Pt was out of her room more this shift. Pt was pleasant, polite and cooperative when approached but gets agitated if she doesn't like what you ask her. Pt speech was pressured and eye contact was fair. Pt maintained behavior throughout the shift other than yelling at a peer but she was able to be redirected. Pt attended breakfast and lunch in [employer] and ate 75%. Pt ate snack both times. Pt visited with her ex and it appeared to go well. Pt was observed every 15 minutes through the shift as ordered.
[2017-02-06] MEDS: LORazepam 1 mg Tablet PO PRN ×4 (00:08→20:07)
--- NOTE | 2017-02-06 06:02 | NUR ---
Nursing Note Learning And Development Intern 7pm-7am Patient was in dining room eating dinner at start of shift. Her boyfriend, Mil, came for visit this evening. Patient was appropriate and calm. Came out to dining room for evening snack and HS medications and returned to room and went to sleep. Patient awakened around 0000 to find another patient in her room, she came to nurses station and alerted staff of this. Other patient was reminded that he cannot enter another patients room and was redirected to his own room. Patient was given Ambien 5 mg and Ativan 1 mg and returned to her room and went to sleep. Patient slept 7.25+ hours. Pt monitored q 15 minutes for safety, location and accountability.
[2017-02-06] MEDS: cloNIDine 0.1 mg Tablet PO SCH ×2 (09:23→20:36)
[2017-02-06] MEDS: Methadone 10 mg/mL 30 mL Oral Concentration PO SCH (09:40)
[2017-02-06 12:50] VITALS: BP 105/60; PULSE 69; RESP 14
--- NOTE | 2017-02-06 13:40 | PCM.PNPSY ---
Subjective Date of Service Feb 06, 2017 Subjective The patient reports that she is doing better today. She was able to locate her phone and has phone numbers to call but has not yet done so. She reports that her boyfriend came to visit and although they had a somewhat tearful reunion she felt it was helpful. She stated that he would help her "if I am on the right track, going to NA and stuff." She states that he may be able to loan her his car to go to work. She needs a letter for [employer]. She reports a peer came into the room last night as she was sitting up in bed and put his arm around her shoulder but he responded to redirection and left the room. She reports that she started the intake process with [facility]. Her methadone clinic is in [place]. Sleep: 6.25 hours, interrupted by peer Appetite: "Good, eat like a horse" Suicidal and homicidal ideation: Denies Auditory hallucinations: Denies Visual hallucinations: Denies Other Psychotic Symptoms: N/A Anxiety: 6-7 Depression: 4-10 Current Medications Current Medications Nicotine 1 patch DAILY TOPICAL Last administered on 02/06/17 09:23; Admin Dose 1 PATCH; Start 02/06/17 at 08:30 Nicotine Polacrilex 2 mg Q4H PRN BUCCAL Last administered on 02/06/17 11:11; Admin Dose 2 MG; Start 02/05/17 at 13:00 Mental Status Exam Vital Signs Vital Signs Date Time Temp Pulse Resp B/P Pulse Ox O2 Delivery O2 Flow Rate FiO2 02/06/17 12:50 36.2 69 14 105/60 Appearance: Neat/well groomed Attitude: Cooperative Behavior: No unusual behavior Affect: Well Modulated/Appropriate Mood: Anxious (mild) Thought Process/Associations: Logical/Sequential, Goal Directed Speech Production: Normal Speech Rate: Normal Speech Articulation: Normal Thought Content: Negativistic (somewhat) Danger to Self/Suicidal Ideati: None Danger to Others: None Hallucinations: Auditory (Denies), Visual (Denies) Consciousness: Alert Orientation: Person, Place, Date, Situation Memory: Grossly Intact Estimate Intellectual Function: Average Basis for IQ estimate: Word use/vocabulary, Educational history, Employment history Attention/Concentration & Cogn: Impaired Insight: Limited Judgement: Limited Result Diagram: 01/31/17 0650 01/31/17 0650 Mental Health Plan The patient is a 26-year-old white female with significant polysubstance use disorder including heroin, cocaine, methamphetamine, marijuana and alcohol. The patient has a history of significant personality disorder and had been refusing to participate on the unit as well as with the court process. She recently learned that her grandmother placed a restraining order on her and she is now homeless. In order to allow the patient to further stabilize, her 72 hour involuntary treatment hold hearing was postponed until this Monday. She is still being prescribed methadone as she struggles with ongoing opiate use. The patient was treated for a labial cyst. The patient appears to continue to improve with additional time for stabilization. She was encouraged to work on appropriate discharge planning, including calling friends for potential housing, so as to allow for discharge on Monday. She was encouraged to maintain appropriate behavior on the unit. She denies side effects to medications. Long hospital stays are contraindicated in those with significant cluster B personality disorder. [place] AXIS I 1. Depression unspecified 2. Rule out substance induced mood disorder. 3. Polysubstance use disorder with heroin, cocaine, methamphetamine and THC. AXIS II Borderline personality disorder, by report. AXIS III labial cyst. AXIS IV Unknown. AXIS V Current global assessment of functioning equal to 35 Medications Clonidine 0.1 mg twice daily Escitalopram 10 mg daily Lorazepam 1 mg every 4 hours as needed Hydroxyzine 50 mg every 4 hours when necessary anxiety or agitation Methadone 100 mg daily Doxycycline 100 mg twice daily through 02/10/2017 Nicoderm 21mg TD patch daily with commit lozenges Zolpidem 5-10 mg nightly when necessary insomnia Treatments 1. The patient is admitted to the inpatient unit and will be provided a safe and secure environment. 2. The patient is denying current active suicidality and is not in need of a one-to-one at this time. 3. The patient is encouraged to participate with group and milieu activities. 4. The patient will be seen by the treatment team on a daily basis to assess symptoms, side effects and response to treatment. 5. The patient will be continued on her current medication 6. Continue clonidine 0.1 mg twice daily 7. Continue Escitalopram 10 mg daily 8. The patient will need to work on a safety plan prior to discharge 9. Anticipated length of stay is 2-3 days. Andrew Laurent MD Feb 06, 2017 13:40
--- NOTE | 2017-02-06 16:44 | NUR ---
Observations 0900 - 1700 Pt affect and mood was anxious, agitated at times, social with select peers and labile. Pt was pleasant, polite and cooperative when approached but gets agitated if she doesn't like what you ask her. Pt speech was good and eye contact was fair. Pt maintained behavior throughout the shift other than yelling a little bit when she was upsetbut she was able to be redirected. Pt attended breakfast and lunch in [employer] and ate 75%. Pt ate snack both times. Pt attended community meeting and set a daily goal. Pt rated her mood 7/10, with 10 being the best. Pt stated "I want to have a good day and figure out what I'm doing next when I get out of here, because I am homeless now" Pt was observed every 15 minutes through the shift as ordered.
--- NOTE | 2017-02-06 17:16 | NUR ---
Wastewater Technician/Counselor S:"I need to find a place to stay." O: Patient denies any SI or HI, no AVH, no anxiety and rated her depression at a 4-5. A: Patient has been agitated at times. Interactive with other patients. Patient became irritated when approached to attend group. Hostile at times. P: Follow care plan and coordinate with outpatient providers.
[2017-02-06] MEDS ORDERED: LORazepam 2 mg Tablet PO ONE (21:55)
[2017-02-06] MEDS: hydrOXYzine Pamoate 25 mg Capsule PO PRN (23:13)
--- NOTE | 2017-02-06 23:28 | NUR ---
SECLUSION NURSING NOTE: Pt became agitated when she was not allowed certain snacks at evening snack time. Pt was directing her aggression at staff when she did not get her way. Another Pt asked her to please lower her voice and not use profanity. Pt then began screaming at the top of her lungs, profanities and threats to the other Pt: You better hope you make it through the night. Im going to slit that bitch's throat. I hope you . You're a fucking bitch. Pt was given PRN Ativan 1mg at 2006, and due to continued agitation she was given PRN Seroquel 50mg with her HS meds and asked to go to her room. The Pt went to her room screaming and proceeded to scream in her room the threats about the other Pt. The Pt then came out of her room back to the dayroom screaming threats and pointing at the other Pt. in the dayroom. When staff approached her Pt screamed, and stated "I am borderline personality. I can't control what comes out of my mouth." Pt was unable to be redirected by staff and due to continued threats to peer and staff, security was called Pt was escorted to seclusion at 2057. Pt pulled the mattress off the bed and held it on top of herself. Staff removed Mattress from room.
[2017-02-07] MEDS: LORazepam 1 mg Tablet PO PRN ×2 (01:46→14:00)
--- NOTE | 2017-02-07 04:17 | NUR ---
Observations 1900 to 0700 Pt ate a snack. Pt became agitated at snack time due to snack limits per unit policy. Pt continue to swear and complain in verbally aggressive manner that was upsetting to other pts. Whenever this health science writer walked by pt would refer to me as stupid bitch. When another pt asked the pt to keep her language down, pt became irate and began yelling loud threats. Ill punch your glasses into your face. Ill slit your throat. Pt made these threats when standing at nursing station and was not near the other pt. Pt was placed in seclusion and hid herself under mattress. Staff removed mattress and explained to pt it was removed so staff could have a visual on pt to make sure she was safe. Pt then began to choke herself with hands. A anshul frias was called and pt was placed in restraints. Pt continued to yell, scream and make threats. Pt also banged arms on side of seclusion and bed. Please see RNs note for further details.
--- NOTE | 2017-02-07 05:43 | NUR ---
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 Pt out of restraints at 2310- See violent restraint assessment. Pt escorted to room, given additional 5mg dose of ambien and Vistaril 50 mg po. Pt given snack and fluids. Vitals taken and stable. 125/78 p. 92. 02 sat 98. Pt assessed for bruising or injuries. None observed or reported. Pt reported generalized pain of 8/10 due to struggling against restraints and given Tylenol 650mg. Pt went to sleep for 2.5 hours awoke and requested medication for anxiety and to go back to sleep. Given ativan 1mg and seroquel 50 mg with good relief. Pt slept the remainder of the shift. Monitored pt with q 15 minute face checks for safety, location and accountability.
[2017-02-07] MEDS: cloNIDine 0.1 mg Tablet PO SCH (09:25)
[2017-02-07] MEDS: Methadone 10 mg/mL 30 mL Oral Concentration PO SCH (09:36)
[2017-02-07] MEDS: hydrOXYzine Pamoate 25 mg Capsule PO PRN (14:00)
--- NOTE | 2017-02-07 14:22 | PCM.DIMED ---
Discharge Instructions Date of Service Feb 07, 2017 Dates of Hospitalization Jan 31, 2017 at 10:54 Discharge Diagnosis Discharge Diagnosis AXIS I 1. Depression unspecified 2. Rule out substance induced mood disorder. 3. Polysubstance use disorder with heroin, cocaine, methamphetamine and THC. AXIS II Borderline personality disorder AXIS III labial cyst. AXIS IV Moderate to severe AXIS V Current global assessment of functioning equal to 50 Test Results Test Results CBC Test 01/31/17 06:50 White Blood Count 7.2th/mm3 (3.8-10.1) Red Blood Count 4.78mil/mm3 (3.90-5.20) Hemoglobin 14.3g/dL (12.0-15.6) Hematocrit 42.9% (35.0-46.0) Mean Corpuscular Volume 89.7fL (81-100) Mean Corpuscular Hemoglobin 29.9pg (27.0-35.0) Mean Corpuscular Hemoglobin Concent 33.3% (32.0-37.0) Red Cell Distribution Width 13.0% (12.3-15.4) Platelet Count 169bil/L (150-400) Neutrophils (%) (Auto) 38.5% (40-74) Lymphocytes (%) (Auto) 47.8% (14-46) Monocytes (%) (Auto) 7.9% (4-12) Eosinophils (%) (Auto) 5.3% (0-5) Basophils (%) (Auto) 0.4% (0-3) CMP Test 01/31/17 06:50 Sodium Level 137mEq/L Potassium Level 4.5mEq/L Chloride Level 99mEq/L Carbon Dioxide Level 24mmol/L Blood Urea Nitrogen 14mg/dL Creatinine 0.65mg/dL Estimat Glomerular Filtration Rate 158mL/min Glucose Level 94mg/dL Calcium Level 9.8mg/dL Total Bilirubin 0.3mg/dL Aspartate Amino Transf (AST/SGOT) 22U/L Alanine Aminotransferase (ALT/SGPT) 12U/L Alkaline Phosphatase 54U/L Total Protein 7.2g/dL Albumin 4.2g/dL Thyroid Stimulating Hormone (TSH) 2.120uIU/mL Diet Discharge Diet: No restrictions Activity Discharge Activity: No restrictions Patient Instructions Patient Instructions Should you have any thoughts of harming yourself or others, please call the crisis line, your provider, 911, or go to the nearest Emergency Department. Do not change or discontinue your medications without discussing with your provider. You have been given a prescription for 30 days supply of your new medication Follow-up plan [facility] on 02/08/17 at 830am, walk in. [facility] [address] [address] Andrew Laurent MD Feb 07, 2017 14:22
[2017-02-07] MEDS ORDERED: CLON0.1T14 PO (14:25)
[2017-02-07] MEDS ORDERED: ESCI10TA52 PO (14:25)
[2017-02-07] MEDS ORDERED: HYDR50CA3 PO (14:25)
[2017-02-07] MEDS ORDERED: DOXY100T2 PO (14:25)
[2017-02-07] MEDS ORDERED: ZLP5T PO (14:25)
--- NOTE | 2017-02-07 15:15 | NUR ---
Nursing Discharge Note: Patient cooperative with discharge process. Acknowledges understanding of d/c instructions and has a copy with them upon leaving unit at 1513. Belongings accounted for and with patient. Prescriptions given to patient to fill at the pharmacy of her choice. Patient denies harmful thoughts and hallucinations at this time.
--- NOTE | 2017-02-07 17:19 | NUR ---
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 A: Patient has been discharged. She was provided with all necessary paperwork and has an appt for an assessment for services with [facility] on 02/08/17. She was pleasant and cooperative upon discharge. Patient was picked up by her boyfriend. P: Follow discharge plans.
--- NOTE | 2017-02-07 22:50 | PCM.DC.MED ---
Discharge Summary Date of Service Feb 07, 2017 Dates of Hospitalization Date of Hospital Admission Jan 31, 2017 at 10:54 Date of Discharge: Feb 07, 2017 Providers: Admitting Physician: Baldemar Comer MD Primary Care Physician: Nica Xiong MD Attending Physician: Baldemar Comer MD Diagnosis at Time of Discharge Diagnosis at Time of Discharge AXIS I 1. Depression unspecified 2. Rule out substance induced mood disorder. 3. Polysubstance use disorder with heroin, cocaine, methamphetamine and THC. AXIS II Borderline personality disorder AXIS III labial cyst. AXIS IV Moderate to severe AXIS V Current global assessment of functioning equal to 50 Consultations Exerpt From Radha Mcgill MD Note of: 02/03/17 1809 ... ASSESSMENT: This is a 26-year-old female admitted to the psychiatric unit for suicidal ideation with a history of polysubstance abuse and severe personality disorder who was complaining of a painful right labial cyst which was drained at bedside. PLAN: Her cyst was drained with good reduction in the cyst fluid. At this point in time I would recommend proceeding with doxycycline therapy for prophylaxis against infection. If she is having ongoing issues with recurrent Bartholin gland cyst or abscess, cyst removal could be discussed further as an outpatient when her psychiatric condition has stabilized versus marsupialization. It is likely that her cyst will recur with bedside drainage only, however this was the most appropriate during her current inpatient stay. Would recommend [facility] when she is discharged for further followup. Brief History From Dr. Comer's H&P IDENTIFICATION: The patient is a 26-year-old white female with a history of polysubstance abuse currently attending a methadone clinic. She is a very poor historian and was brought to the ED for evaluation of suicidal ideation. REASON FOR ADMISSION: Suicidal ideation. Client was running into traffic in an attempt to kill herself. She had wished that she had overdosed on meds and was highly agitated when brought to the emergency department. HISTORY OF PRESENT ILLNESS: Client presents today for evaluation and treatment of suicidal ideation. I met with the client for a brief one-to-one and reviewed course and records kept by Shazia Doe. Client's main issue is polysubstance abuse. Co-occurring issues are interpersonal relationship conflicts. The condition has been developing over an unclear amount of time. The client is a poor historian and refuses to answer any of my questions. Per the ED, she was complaining of suicidal ideation because she broke up with her boyfriend. Two days prior to admission, she did heroin, cocaine and methadone. Her urine tox was also positive for THC. At the time of my evaluation, she was extremely emotionally labile with poor coping skills and a marked impairment in judgment and insight. She refused to respond to questions about psychiatric or physical review of systems. She refused to talk about past medical history or psychosocial history. Hospital Course The patient was initially admitted to the unit and continued on methadone and clonidine for potential withdrawal and allowed to detox from amphetamines. The patient was quite irritable, using extensive profanities, and confrontational at times with staff and peers. The patient reported that she had responded well to citalopram in the past for a stomach issue which had otherwise been unresponsive to treatment. She was started on escitalopram 10mg daily. The patient reported some relief in anxiety. On the day before discharge, the patient became angry about a peer who had told her to "be quiet" because she was using too much profanity. She also was irritated about not having enough snacks and no friends would allow her to stay with them on discharge. She escalated, making threats to staff and peers, at one point stating, "I am borderline personality. I can't control what comes out of my mouth." She was placed into seclusion and upgraded to restraints. She eventually calmed and was released. By the morning, she had apologized to those she had made negative comments and was feeling ready for discharge. She reported that her boyfriend would be picking her up. She planned to get a police escort as there was a no contact order with her grandmother. She had sufficient funds to stay in a hotel for a few days while she tries to locate more permanent housing. At the time of discharge, the patient was reporting her mood was good today. Sleep was reported as okay" 5.5+ hours per staff. Appetite was reported as good. Her anxiety was reported as 2-3/10 and depression as 3/10. She denied auditory or visual hallucinations, paranoia, and any thought, active intent or plan of hurting herself or others. She denied medication side effects. Exam Vital Signs (Last) Date Time Temp Pulse Resp B/P Pulse Ox O2 Delivery O2 Flow Rate FiO2 02/06/17 12:50 36.2 69 14 105/60 Exam Discharge Mental Status Exam Appearance: Neat/well groomed Attitude: Cooperative Behavior: No unusual behavior Affect: Well Modulated/Appropriate Mood: Anxious (mild) Thought Process/Associations: Logical/Sequential, Goal Directed Speech Production: Normal Speech Rate: Normal Speech Articulation: Normal Thought Content: Negativistic (somewhat) Danger to Self/Suicidal Ideation: None Danger to Others: None Hallucinations: Auditory (Denies), Visual (Denies) Consciousness: Alert Orientation: Person, Place, Date, Situation Memory: Grossly Intact Estimate Intellectual Function: Average Basis for IQ estimate: Word use/vocabulary, Educational history, Employment history Attention/Concentration & Cognition: Grossly intact Insight: Limited Judgment: Limited Test 01/29/17 17:57 01/31/17 06:50 Hold Urine Received (Received) White Blood Count 7.2th/mm3 (3.8-10.1) Red Blood Count 4.78mil/mm3 (3.90-5.20) Hemoglobin 14.3g/dL (12.0-15.6) Hematocrit 42.9% (35.0-46.0) Mean Corpuscular Volume 89.7fL (81-100) Mean Corpuscular Hemoglobin 29.9pg (27.0-35.0) Mean Corpuscular Hemoglobin Concent 33.3% (32.0-37.0) Red Cell Distribution Width 13.0% (12.3-15.4) Platelet Count 169bil/L (150-400) Neutrophils (%) (Auto) 38.5% (40-74) Lymphocytes (%) (Auto) 47.8% (14-46) Monocytes (%) (Auto) 7.9% (4-12) Eosinophils (%) (Auto) 5.3% (0-5) Basophils (%) (Auto) 0.4% (0-3) Sodium Level 137mEq/L (134-144) Potassium Level 4.5mEq/L (3.5-5.2) Chloride Level 99mEq/L (97-108) Carbon Dioxide Level 24mmol/L (18-29) Blood Urea Nitrogen 14mg/dL (6-20) Creatinine 0.65mg/dL (0.57-1.00) Estimat Glomerular Filtration Rate 158mL/min (>59) Glucose Level 94mg/dL (60-99) Calcium Level 9.8mg/dL (8.5-10.1) Total Bilirubin 0.3mg/dL (0.0-1.2) Aspartate Amino Transf (AST/SGOT) 22U/L (0-50) Alanine Aminotransferase (ALT/SGPT) 12U/L (0-32) Alkaline Phosphatase 54U/L (25-150) Total Protein 7.2g/dL (6.4-8.4) Albumin 4.2g/dL (3.4-5.0) Thyroid Stimulating Hormone (TSH) 2.120uIU/mL (0.450-4.500) Discharge Medications Discharge Medications ([methadone ]) 115 MG PO DAILY (Reported) Clonidine (Catapres) 0.1 Mg Tablet 0.1 MG PO BID Prescribed by: CHRISTOPHE LAURENT MD Doxycycline Hyclate (Doxycycline Hyclate) 100 Mg Tablet 100 MG PO BID Prescribed by: CHRISTOPHE LAURENT MD Escitalopram Oxalate (Escitalopram Oxalate) 10 Mg Tablet 10 MG PO DAILY Prescribed by: CHRISTOPHE LAURENT MD Methadone (Methadone) 5 Mg Tablet 0 PO Q6H (Reported) As needed Hydroxyzine Pamoate (HydrOXYzine Pamoate) 50 Mg Capsule 50 MG PO TID PRN PRN For Anxiety or Agitation Prescribed by: CHRISTOPHE LAURENT MD Zolpidem (Ambien) 5 Mg Tablet 5 MG PO HS PRN PRN Insomnia Prescribed by: CHRISTOPHE LAURENT MD Followup Plan Disposition: No indication for further fpc at this time, patient was released at the end of her 72 hour ANTHONY in the company of her boyfriend. The patient verbally consented to take the prescribed medications. The patient verbally expressed understanding of the risks, benefits, alternative treatment options, and risks of not taking the prescribed medication. The patient verbally expressed understanding of the medication instructions, that she will adhere to the prescribed medication, and that she will go to all aftercare scheduled appointments. Follow-up plan [facility] Intake on 02/08/17 at 830am, walk in. [address] [id number] Discharge Diet: No restrictions Discharge Activity: No restrictions Patient Instructions Should you have any thoughts of harming yourself or others, please call the crisis line, your provider, 911, or go to the nearest Emergency Department. Do not change or discontinue your medications without discussing with your provider. You have been given a prescription for 30 days supply of your new medication Christophe Laurent MD Feb 07, 2017 15:43
== END 2017-02-07 15:13 | disposition home or self-care (01) | DRG 881 ==
LOC: EDBD 16:31 → SED 16:31 → MHC 01-31 10:54
PROVIDERS: ADMIT Psychiatry & Neurology Psychiatry; ATTEND Psychiatry & Neurology Psychiatry
PROC: 0U9L0ZZ Drainage of Vestibular Gland, Open Approach (ICD-10-PCS; principal; 2017-02-03)
DX: F32.9 Major depressive disorder, single episode, unspecified (principal); R45.851 Suicidal ideations; F11.20 Opioid dependence, uncomplicated; F60.3 Borderline personality disorder; F14.10 Cocaine abuse, uncomplicated; F15.10 Other stimulant abuse, uncomplicated; F12.10 Cannabis abuse, uncomplicated; N75.0 Cyst of Bartholin's gland

== ENCOUNTER 2017-02-17 11:12 | Emergency (ER) | payer MEDICAID, OTHER ==
[~2017-02-17] VITALS: Ht 170.2 cm; Wt 59.1 kg
[~2017-02-17 11:12] MED LIST changes: +CLON0.1T14 PO; +DOXY100T2 PO; +ESCI10TA52 PO; +HYDR50CA3 PO; +ZLP5T PO; +methadone PO
[2017-02-17 11:27] VITALS: BP 125/81; PULSE 77; RESP 16; O2SAT 98
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
[2017-02-17] MEDS ORDERED: Dexamethasone 20 mg/2 mL Oral Solution PO ONE (12:10)
[2017-02-17] MEDS ORDERED: Albuterol HFA 60 Puff 8 Gm Inhaler INHALATION ONE (12:10)
[2017-02-17] MEDS ORDERED: Albuterol HFA 200 Puff Inhaler (Vent Pts Only) INHALATION ONE (12:20)
--- NOTE | 2017-02-17 13:16 | DRSVH ---
PROCEDURE: X-RAY CHEST, TWO VIEWS ([id number]) INDICATIONS: cough, new bronchospasm TECHNIQUE: 2 views of the chest were acquired. COMPARISON: None. FINDINGS: Surgical changes and devices: None. Lungs and pleura: No pleural effusions or pneumothorax. Lungs are clear. Mediastinum: Mediastinal contours are normal. Heart size is normal. Bones and chest wall: No suspicious bony abnormalities. Soft tissues appear unremarkable. IMPRESSION: No acute disease. Dictated by: Dudley Betancourt M.D. on 02/17/2017 at 12:14 Approved by: Dudley Betancourt M.D. on 02/17/2017 at 12:15
[2017-02-17 16:04] VITALS: BP 109/58; PULSE 68; RESP 18; O2SAT 99
[2017-02-17 20:21] VITALS: BP 99/48; PULSE 96; RESP 20; O2SAT 99
[2017-02-17] MEDS ORDERED: LORazepam 1 mg Tablet PO ONE (21:50)
[2017-02-18 08:35] LABS: BASOPHILS % (AUTO) 0.2 % (0-3); EOSINOPHILS % (AUTO) 0 % (0-5); MONOCYTES % (AUTO) 4.8 % (4-12); Mean Corpuscular Volume 87.7 fL (81-100); NEUTROPHILS % (AUTO) 76.9 % (40-74); Platelet Count 205 bil/L (150-400)
[2017-02-18 09:40] VITALS: BP 111/70; PULSE 85; RESP 18; O2SAT 100
[2017-02-19] MEDS ORDERED: ALBU8.5H2 INHALATION (13:33)
== END 2017-02-18 11:49 | disposition home or self-care (01) ==
LOC: SED 11:12
DX: S51.812A Laceration without foreign body of left forearm, initial encounter (principal); J98.01 Acute bronchospasm; X78.8XXA Intentional self-harm by other sharp object, initial encounter; Y93.89 Activity, other specified; Y92.009 Unspecified place in unspecified non-institutional (private) residence as the place of occurrence of the external cause; Y99.8 Other external cause status; F17.200 Nicotine dependence, unspecified, uncomplicated; F15.10 Other stimulant abuse, uncomplicated; F11.10 Opioid abuse, uncomplicated; F14.10 Cocaine abuse, uncomplicated; Z88.8 Allergy status to other drugs, medicaments and biological substances

== ENCOUNTER 2017-02-18 16:33 | Emergency (ER) | payer MEDICAID ==
[~2017-02-18] VITALS: Ht 175.3 cm; Wt 56.8 kg
[2017-02-18 16:36] VITALS: BP 122/76; PULSE 109; RESP 26; O2SAT 96
[2017-02-18] MEDS ORDERED: Albuterol HFA 200 Puff Inhaler (Vent Pts Only) ONE (16:38)
[2017-02-18] MEDS ORDERED: Albuterol HFA 60 Puff 8 Gm Inhaler INHALATION PRN (16:50)
[2017-02-18] MEDS ORDERED: Albuterol-Ipratropium 3 mL Inhalation Solution ONE (16:51)
[2017-02-18] MEDS ORDERED: Albuterol-Ipratropium 3 mL Inhalation Solution NEB ONE (16:55)
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
[2017-02-18 20:24] VITALS: BP 120/68; PULSE 72; RESP 20; O2SAT 97
[2017-02-19 06:32] VITALS: BP 103/61; PULSE 55; RESP 16; O2SAT 99
[2017-02-19 07:10] VITALS: BP 137/78; PULSE 98; RESP 16; O2SAT 98
[2017-02-19] MEDS ORDERED: Albuterol 2.5 mg/3 mL Inhalation Solution NEB ONE (07:20)
[2017-02-19] MEDS ORDERED: predniSONE 20 mg Tablet PO ONE (07:20)
[2017-02-19] MEDS ORDERED: Dexamethasone 20 mg/2 mL Oral Solution PO ONE (07:25)
[2017-02-19] MEDS ORDERED: ALBU8.5H2 INHALATION (13:33)
== END 2017-02-19 15:10 ==
LOC: SED 16:33
DX: R45.851 Suicidal ideations (principal); F43.0 Acute stress reaction; J98.01 Acute bronchospasm; F17.200 Nicotine dependence, unspecified, uncomplicated; F15.10 Other stimulant abuse, uncomplicated; F11.10 Opioid abuse, uncomplicated; F14.10 Cocaine abuse, uncomplicated; Z88.8 Allergy status to other drugs, medicaments and biological substances
CPT/HCPCS: 81025; 82075; 94664; 99284; J7613; J7620

== ENCOUNTER 2017-02-28 00:57 | Emergency (ER) | payer MEDICAID ==
[~2017-02-28] VITALS: Ht 170.2 cm; Wt 59.1 kg
[2017-02-28] VITALS (7 sets, daily range): BP systolic 92–139; BP diastolic 48–113; PULSE 75–141; RESP 13–34; O2SAT 75–97
[~2017-02-28 00:57] MED LIST changes: +ALBU8.5H2 INHALATION
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
[2017-02-28] MEDS ORDERED: Dexamethasone Inj 20 MG in 0.9% Sodium Chloride-Pha MIX 50 ML IV ONE (01:15)
[2017-02-28] MEDS ORDERED: Albuterol-Ipratropium 3 mL Inhalation Solution NEB ONE (01:15)
[2017-02-28 02:22] LABS: BASOPHILS % (AUTO) 0.4 % (0-3); MONOCYTES % (AUTO) 7.7 % (4-12); Mean Corpuscular Hemoglobin 29.4 pg (27.0-35.0); Mean Corpuscular Volume 85.4 fL (81-100); Platelet Count 149 bil/L (150-400)
--- NOTE | 2017-02-28 08:31 | DRSVH ---
PROCEDURE: X-RAY CHEST ONE VIEW, PORTABLE ([id number]) INDICATIONS: respiratory distress TECHNIQUE: One view of the chest was acquired. COMPARISON: [facility], CR, XR CHEST 2VW, 02/17/2017, 12:26. FINDINGS: Surgical changes and devices: None. Lungs and pleura: No pleural effusions or pneumothorax. Lungs are clear. Mediastinum: Mediastinal contours appear normal. Heart size is normal. Bones and chest wall: No suspicious bony lesions. Overlying soft tissues appear unremarkable. IMPRESSION: No acute disease, source of respiratory distress is not found. Dictated by: Bronson Bardales M.D. on 02/28/2017 at 8:28 Approved by: Bronson Bardales M.D. on 02/28/2017 at 8:29
[2017-02-28] MEDS ORDERED: ALBU8.5H2 INHALATION (17:52)
[2017-02-28] MEDS ORDERED: PRE20 PO (17:52)
== END 2017-02-28 18:24 ==
LOC: SED 00:57 → EDUNIT# 00:57 → EDBD 00:57 → SED 18:24
DX: J98.01 Acute bronchospasm (principal); F43.0 Acute stress reaction; F15.10 Other stimulant abuse, uncomplicated; R45.851 Suicidal ideations; F17.200 Nicotine dependence, unspecified, uncomplicated; Z88.8 Allergy status to other drugs, medicaments and biological substances
CPT/HCPCS: 36415; 71010; 80053; 81025; 82075; 84443; 85025; 93005; 94664; 96374; 96375; 99285; G0480; J1100; J2060; J7620

== ENCOUNTER → 2017-03-04 | Emergency (ER) | payer MEDICAID ==
[~2017-03-04] VITALS: Ht 170.2 cm; Wt 59.1 kg
[~2017-03-04] MED LIST changes: +0.9% Sodium Chloride 1,000 ML IV ONE; +PRE20 PO
[2017-03-04 15:57] VITALS: BP 145/92; PULSE 113; RESP 22; O2SAT 94
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
[2017-03-04 22:09] LABS: BASOPHILS % (AUTO) 0.2 % (0-3); EOSINOPHILS % (AUTO) 2.2 % (0-5); MONOCYTES % (AUTO) 7.4 % (4-12); Mean Corpuscular Hemoglobin 29.8 pg (27.0-35.0); Mean Corpuscular Volume 87.8 fL (81-100); NEUTROPHILS % (AUTO) 65.5 % (40-74); Platelet Count 196 bil/L (150-400)
[2017-03-04 22:27] VITALS: BP 121/70; PULSE 72; O2SAT 98
[2017-03-04 22:44] LABS: Magnesium 1.9 mg/dL (1.6-2.6)
[2017-03-04 22:54] LABS: APPEARANCE,URINE CLOUDY (CLEAR,HAZY); COLOR,URINE DARK YELLOW (YELLOW)
[2017-03-04 22:55] LABS: OCCULT BLOOD,URINE NEGATIVE (NEGATIVE)
== END ==
LOC: SED 15:55
DX: F32.9 Major depressive disorder, single episode, unspecified (principal); R45.851 Suicidal ideations; R63.0 Anorexia; F15.10 Other stimulant abuse, uncomplicated; F19.10 Other psychoactive substance abuse, uncomplicated; F17.200 Nicotine dependence, unspecified, uncomplicated; Z91.5 Personal history of self-harm; Z88.8 Allergy status to other drugs, medicaments and biological substances